=== PATIENT | female | born 1960 | race Two or more races ===

== ENCOUNTER 2017-10-13 12:59 | Outpatient (CLI) | payer OTHER | END 2017-10-13 13:00 | disposition home or self-care (01) | LOC: NUCLEAR 12:59 | DX: I50.22 Chronic systolic (congestive) heart failure (principal); R06.02 Shortness of breath | CPT/HCPCS: 78472; 78496; A9560 ==

== ENCOUNTER 2019-11-11 10:53 | Outpatient (CLI) | payer OTHER | END 2019-11-11 11:58 | disposition home or self-care (01) | LOC: NUCLEAR 10:53 | PROVIDERS: ATTEND Internal Medicine Cardiovascular Disease | DX: I48.91 Unspecified atrial fibrillation (principal) | CPT/HCPCS: 78472; 78496; A9560 ==

== ENCOUNTER 2021-10-26 07:23 | Outpatient (CLI) | payer OTHER | END 2021-10-26 08:44 | disposition home or self-care (01) | LOC: NUCLEAR 07:23 | PROVIDERS: ATTEND Internal Medicine Cardiovascular Disease | DX: R07.89 Other chest pain (principal); I25.10 Atherosclerotic heart disease of native coronary artery without angina pectoris ==